=== PATIENT | male | born 1930 | race Caucasian/White ===

== ENCOUNTER 2017-07-11 23:00 | Observation (INO) ==
[2017-07-12 05:17] LABS: Apearance,Urine CLEAR (Clear); Bilirubin,Urine Negative (Negative); Blood, Urine Large mg/dL (Negative); Glucose,Urine (UA) Negative (Negative); Ketones,Urine Negative (Negative); Mucus,Urine Occasional /LPF (Occasional); Nitrite,Urine Negative (Negative); Protein,Urine Negative; RBC,Urine 106 /HPF (0-4); Urine Color Yellow (Yellow); Urine Specific Gravity 1.016 (1.001-1.035); Urine Urobilinogen < 2.0 EU/DL (0.2-1.0); WBC,Urine 1 /HPF (0-6)
[2017-07-12] MEDS: TAMSULOSIN 0.4 MG CAPSULE PO SCH (21:18)
[2017-07-13] MEDS: TAMSULOSIN 0.4 MG CAPSULE PO SCH (08:52)
[2017-07-13] MEDS ORDERED: FINASTERIDE 5 MG TABLET PO SCH (09:00)
[2017-07-13 11:14] VITALS: BP 135/57
== END 2017-07-13 11:25 | disposition home or self-care (01) ==
LOC: N.EDINP 23:00 → N.ED 23:00 → N.3E 07-12 04:46
PROVIDERS: ADMIT Urology; ATTEND Urology

== ENCOUNTER 2020-08-24 14:22 | Observation (INO) ==
[2020-08-24 18:59] LABS: Basophils % 0.1 % (0.0-0.8); Eosinophils % 0.1 % (0.00-10.9); Hematocrit 47.1 VOL% (42.0-52.0); Hemoglobin 16.4 GM/DL (14.0-18.0); Immature Granulocytes % 0.4 %; Immature Granulocytes Absolute 0.03 #; Lymphocytes # 0.3 10*3/uL (1.4-4.0); Lymphocytes % 3.6 % (21.2-54.2); Mean Corpuscular HGB Conc 34.8 GM/DL (32-36); Mean Platelet Volume 9.5 FL (9.6-12.0); Monocytes % 4.2 % (1.7-12.7); Neutrophils % 91.6 % (38.7-73.9); Platelet Count 160 T/CUMM (130-400); Red Blood Count 4.96 MC/CUMM (3.8-5.5); Red Cell Distribution Width 12.8 % (9.3-17.3)
[2020-08-24 19:18] LABS: Albumin 3.6 G/DL (3.4-5.0); Calcium 9.6 MG/DL (8.5-10.1); Potassium 4.1 MMOL/L (3.5-5.1); Total Protein 7.2 G/DL (6.4-8.2)
[2020-08-24 20:38] LABS: Band Neutrophils 3 % (0-10); Lymphocytes 6 % (20-55); Segmented Neutrophils 86 % (50-85); Total Cells Counted 100
[2020-08-24 20:39] LABS: Platelet Estimate Normal
[2020-08-24] MEDS ORDERED: PROMETHAZINE 25 MG/1 ML VIAL IM PRN (22:01)
[2020-08-24] MEDS ORDERED: LACTATED RINGERS 1,000 ML IV SCH (22:01)
[2020-08-24] MEDS ORDERED: ACETAMINOPHEN 325 MG TABLET PO PRN (22:01)
[2020-08-24] MEDS ORDERED: ONDANSETRON 4 MG/2 ML VIAL IV PRN (22:01)
[2020-08-25] MEDS ORDERED: PANTOPRAZOLE 40 MG TABLET PO SCH (09:00)
[2020-08-25 11:49] VITALS: BP 136/58
[2020-08-25] MEDS ORDERED: ENOXAPARIN 40 MG/0.4 ML SYRINGE SUBCUT SCH (15:30)
== END 2020-08-25 13:15 | disposition home or self-care (01) ==
LOC: N.EDINP 14:22 → N.ED 14:22 → N.3E 21:50
PROVIDERS: ADMIT Surgery; ATTEND Surgery